=== PATIENT | male | born 1955 | race African-American/Black ===

== ENCOUNTER 2016-11-26 13:11 | Day surgery (SDC) | payer OTHER ==
[~2016-11-26] VITALS: Ht 185.4 cm; Wt 63.5 kg
[~2016-11-26 13:11] MED LIST: 0.9% Sodium Chloride 1,000 ML IV SCH; ASPI-973 PO; ATRV10T PO; BUTA1CAP41 PO; ESCI20TA38 PO; FELO5TAB4 PO; IBUP400T22 PO; LISI40TA PO; POTA20TA16 PO; Sodium Chloride LOK Flush 10 mL Syringe IV PRN; ZIPR80CA22 PO; fentaNYL-PF 50 mCg/mL 2 mL Inj IVPUSH PRN
[2016-11-26 13:33] VITALS: BP 147/99; PULSE 53; RESP 17; O2SAT 98
[2016-11-26 14:58] VITALS: BP 138/86; PULSE 57; RESP 16; O2SAT 95
[2016-11-26 15:12] VITALS: BP 135/90; RESP 14; O2SAT 97
--- NOTE | 2016-11-27 01:05 | ENDO ---
[address] [address] ENDOSCOPY PROCEDURE PATIENT: JOSÉ ANTONIO DOWNING : 1955 MR#: [id number] ADMIT: 11/26/2016 JOB ID: [id number] DATE OF PROCEDURE: 11/26/2016 PRIMARY PROVIDER: Juve Petersen MD. PROCEDURE: Esophagogastroduodenoscopy. INDICATIONS: A 60-year-old male with cirrhosis. He reports for variceal screening. EQUIPMENT: GIF-H190. SEDATION: 1. Versed 5 mg. 2. Fentanyl 100 mcg. COMPLICATIONS: None identified. PROCEDURE INFORMATION: After the risks and benefits were explained, written and verbal informed consent was obtained. The patient was brought into the endoscopy suite and placed into the left lateral decubitus position. Sedation was achieved using the above-stated medications with the addition of oxygen via nasal cannula. The scope was introduced into the mouth through the bite block and advanced to the second portion of the duodenum. The scope was slowly withdrawn to carefully examine the mucosa for any defects or lesions. Retroflexed views were accomplished in the stomach. The stomach was decompressed. The scope was removed from the patient who tolerated the procedure well. FINDINGS: 1. Duodenum: No pathology identified from the bulb through to the second portion. 2. Stomach: Minimal gastropathy seen throughout. No ulcers. No outlet obstruction. No mass lesions. Slightly J-shaped stomach. Retroflexed views did not disclose any significant pathology. No varices seen throughout. 3. Esophagus: The squamocolumnar junction correlated with the top of the gastric folds. The GEJ was at approximately 43 cm from the incisors. Small sliding hiatal hernia noted. Otherwise, no varices throughout the course of the esophagus. No other pathology. ENDOSCOPIC DIAGNOSES: 1. Small sliding hiatal hernia. 2. Minimal gastropathy. RECOMMENDATIONS: Consider repeat variceal screening in three years' time.
== END 2016-11-26 23:59 | disposition home or self-care (01) ==
LOC: END 13:11
PROVIDERS: ATTEND Internal Medicine Gastroenterology
DX: K31.9 Disease of stomach and duodenum, unspecified (principal); K44.9 Diaphragmatic hernia without obstruction or gangrene; K74.60 Unspecified cirrhosis of liver; M79.7 Fibromyalgia; Z79.82 Long term (current) use of aspirin
CPT/HCPCS: 43235; J7030